=== PATIENT | male | born 1975 | race Caucasian/White ===

== ENCOUNTER 2019-01-24 23:49 | Emergency (ER) | payer OTHER ==
[2019-01-25] MEDS ORDERED: VANCOMYCIN IV PER PHARMACY 1 EACH MISC MISCELLANE PRN (00:24)
[2019-01-25] MEDS ORDERED: MORPHINE SULFATE 4 MG/ML SYRINGE IVP STA (00:27)
[2019-01-25] MEDS ORDERED: VANCOMYCIN 1,500 MG in SODIUM CHLORIDE 0.9% 250 ML IVPB ONE (01:00)
--- NOTE | 2019-01-25 01:02 | ED ---
Skin/Abscess/FB HPI - General Chief complaint: Skin/Abscess/Foreign Body Stated complaint: Groin Abscess Time Seen by Provider: 01/25/19 00:11 Source: patient Mode of arrival: ambulatory Limitations: no limitations - History of Present Illness Initial comments: Jeromy is a previously healthy non-diabetic 43 yo male who presents to the ER today for evaluation of right groin abscess. Patient reports that he has noticed an abscess in his right groin intermittently over the past couple years he describes it as a pimple usually erupts and he can drain it and it resolves. He reports that he noticed it yesterday however today he got very large and ally nful. Patient reports his tried to drain it but it was too painful and swollen and larger and it had ever been so they decided to come to the ER for evaluation. She reports the pain radiates from his right groin and he was pubic area but not down into his testicles her perineal area. - Related Data Previous Rx's Medication Instructions Recorded Cephalexin [Keflex] 500 mg PO Q6HR 5 Days #20 cap 01/25/19 Sulfamethox-Tmp 800-160Mg [Bactrim 1 tab PO Q12HR 5 Days #10 tab 01/25/19 DS 800-160 mg] Allergies Allergy/AdvReac Type Severity Reaction Status Date / Time No Known Allergies Allergy Verified 01/25/19 00:09 Review of Systems ROS Statement: Those systems with pertinent positive or pertinent negative responses have been documented in the HPI. ROS Other: All systems not noted in ROS Statement are negative. Past Medical History Past Medical History: No Reported History History of Any Multi-Drug Resistant Organisms: None Reported Past Surgical History: No Surgical Hx Reported Past Psychological History: No Psychological Hx Reported Smoking Status: Current every day smoker Past Alcohol Use History: Occasional Past Drug Use History: Marijuana General Exam - General Exam Comments Initial Comments: Physical Exam GENERAL: Appears uncomfortable HENT: Normocephalic, Atraumatic. EYES: PERRL, EOMI PULMONARY: Unlabored respirations. No audible rales rhonchi or wheezing was noted. CARDIOVASCULAR: Tachycardiac, regular ABDOMEN: Soft and nontender with normal bowel sounds. SKIN: Abscess in the right groin measuring approximately 1.5 cm in diameter with surrounding cellulitis. There is no crepitus No ecchymosis and the perineum No tenderness of the penis or scrotum : Normal external genitalia, circumcised NEUROLOGIC: Patient is alert and oriented x3. Moving all extremities spontaneously MUSCULOSKELETAL: Normal extremities with adequate strength and full range of motion. No lower extremity swelling or edema. No calf tenderness. PSYCHIATRIC: Normal psychiatric evaluation. Limitations: no limitations Course Vital Signs 01/25/19 01/25/19 00:04 04:18 Temperature 98.4 F 98.3 F Pulse Rate 113 H 85 Respiratory 20 18 Rate Blood Pressure 134/85 121/80 O2 Sat by Pulse 96 91 L Oximetry Procedures - Incision & Drainage Consent Obtained: verbal consent Site: upper extremity (right groin) Anesthetic Used: lidocaine 1% Amount (mLs): 3 I&D Cleaning Method: Chloroprep Scalpel Used: #11 Needle Aspiration Performed?: Yes I&D Drainage Obtained: Pus, Blood Packing: Plain Culture Obtained?: No Patient Tolerated Procedure: well Medical Decision Making - Medical Decision Making The patient was seen and evaluated, patient was noted to be tachycardic and very uncomfortable Physical exam does reveal a right groin abscess with surrounding cellulitis A sepsis workup was initiated, computed tomography scan was ordered to evaluate for any tracking of the abscess or signs of Levon's gangrene Broad-spectrum antibiotics were initiated CT with the small localized abscess with surrounding cellulitis no signs of Four nier's gangrene or necrotizing fasciitis Labs with mild leukocytosis otherwise unremarkable The abscess was I&D, purulent fluid was drained and I&D was packed with gauze. 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 Patient will be discharged home with Keflex and Bactrim for treatment of abscess. Closed return parameters were discussed all questions pertaining care were answered patient was discharged home in stable condition. - Lab Data Result diagrams: 01/25/19 00:55 01/25/19 00:55 Lab Results 01/25/19 01/25/19 01/25/19 Range/Units 00:55 00:55 00:55 WBC 9.8 (3.8-10.6) k/uL RBC 5.14 (4.30-5.90) m/uL Hgb 15.3 (13.0-17.5) gm/dL Hct 45.7 (39.0-53.0) % MCV 89.0 (80.0-100.0) fL MCH 29.8 (25.0-35.0) pg MCHC 33.5 (31.0-37.0) g/dL RDW 12.8 (11.5-15.5) % Plt Count 207 (150-450) k/uL Neutrophils % 57 % Lymphocytes % 35 % Monocytes % 5 % Eosinophils % 2 % Basophils % 0 % Neutrophils # 5.6 (1.3-7.7) k/uL Lymphocytes # 3.4 (1.0-4.8) k/uL Monocytes # 0.5 (0-1.0) k/uL Eosinophils # 0.2 (0-0.7) k/uL Basophils # 0.0 (0-0.2) k/uL PT (9.0-12.0) sec INR (<1.2) APTT (22.0-30.0) sec Sodium 142 (137-145) mmol/L Potassium 4.1 (3.5-5.1) mmol/L Chloride 105 (98-107) mmol/L Carbon Dioxide 22 (22-30) mmol/L Anion Gap 15 mmol/L BUN 8 L (9-20) mg/dL Creatinine 0.79 (0.66-1.25) mg/dL Est GFR (CKD-EPI)AfAm >90 (>60 ml/min/1.73 sqM) Est GFR (CKD-EPI)NonAf >90 (>60 ml/min/1.73 sqM) Glucose 126 H (74-99) mg/dL Lactic Ac Sepsis Rflx Plasma Lactic Acid Benito 2.2 H* (0.7-2.0) mmol/L Calcium 8.7 (8.4-10.2) mg/dL Total Bilirubin 0.4 (0.2-1.3) mg/dL AST 32 (17-59) U/L ALT 48 (21-72) U/L Alkaline Phosphatase 90 (38-126) U/L Total Protein 7.2 (6.3-8.2) g/dL Albumin 4.4 (3.5-5.0) g/dL Urine Color Urine Appearance (Clear) Urine pH (5.0-8.0) Ur Specific Mcgill (1.001-1.035) Urine Protein (Negative) Urine Glucose (UA) (Negative) Urine Ketones (Negative) Urine Blood (Negative) Urine Nitrite (Negative) Urine Bilirubin (Negative) Urine Urobilinogen (<2.0) mg/dL Ur Leukocyte Esterase (Negative) 01/25/19 01/25/19 01/25/19 Range/Units 00:55 01:00 01:52 WBC (3.8-10.6) k/uL RBC (4.30-5.90) m/uL Hgb (13.0-17.5) gm/dL Hct (39.0-53.0) % MCV (80.0-100.0) fL MCH (25.0-35.0) pg MCHC (31.0-37.0) g/dL RDW (11.5-15.5) % Plt Count (150-450) k/uL Neutrophils % % Lymphocytes % % Monocytes % % Eosinophils % % Basophils % % Neutrophils # (1.3-7.7) k/uL Lymphocytes # (1.0-4.8) k/uL Monocytes # (0-1.0) k/uL Eosinophils # (0-0.7) k/uL Basophils # (0-0.2) k/uL PT 9.4 (9.0-12.0) sec INR 0.9 (<1.2) APTT 23.6 (22.0-30.0) sec Sodium (137-145) mmol/L Potassium (3.5-5.1) mmol/L Chloride (98-107) mmol/L Carbon Dioxide (22-30) mmol/L Anion Gap mmol/L BUN (9-20) mg/dL Creatinine (0.66-1.25) mg/dL Est GFR (CKD-EPI)AfAm (>60 ml/min/1.73 sqM) Est GFR (CKD-EPI)NonAf (>60 ml/min/1.73 sqM) Glucose (74-99) mg/dL Lactic Ac Sepsis Rflx Y Plasma Lactic Acid Benito (0.7-2.0) mmol/L Calcium (8.4-10.2) mg/dL Total Bilirubin (0.2-1.3) mg/dL AST (17-59) U/L ALT (21-72) U/L Alkaline Phosphatase (38-126) U/L Total Protein (6.3-8.2) g/dL Albumin (3.5-5.0) g/dL Urine Color Yellow Urine Appearance Clear (Clear) Urine pH 6.0 (5.0-8.0) Ur Specific Mcgill 1.015 (1.001-1.035) Urine Protein Negative (Negative) Urine Glucose (UA) Negative (Negative) Urine Ketones Negative (Negative) Urine Blood Negative (Negative) Urine Nitrite Negative (Negative) Urine Bilirubin Negative (Negative) Urine Urobilinogen <2.0 (<2.0) mg/dL Ur Leukocyte Esterase Negative (Negative) - EKG Data -: EKG Interpreted by Me EKG Comments: EKG was ordered to evaluate for tachycardia, EKG obtained at 12:50 AM, rate is 102 rhythm is sinus there is normal axis there are normal intervals, AL 150, QRS 94, QTC is 463 there are no acute ST elevations or depressions there is no evidence of acute ischemia or infarction. Disposition Clinical Impression: Abscess, Cellulitis Disposition: HOME SELF-CARE Condition: Stable Instructions (If sedation given, give patient instructions): Abscess Incision and Drainage (ED) Prescriptions: Sulfamethox-Tmp 800-160Mg [Bactrim DS 800-160 mg] 1 tab PO Q12HR 5 Days #10 tab Cephalexin [Keflex] 500 mg PO Q6HR 5 Days #20 cap Is patient prescribed a controlled substance at d/c from ED?: No Referrals: None,Stated [Primary Care Provider] - 1-2 days
[2019-01-25 01:14] LABS: Basophils % (A) 0 %; Eosinophils # (A) 0.2 k/uL (0-0.7); Eosinophils % (A) 2 %; HCT 45.7 % (39.0-53.0); HGB 15.3 gm/dL (13.0-17.5); Lymphocytes # (A) 3.4 k/uL (1.0-4.8); Lymphocytes % (A) 35 %; MCH 29.8 pg (25.0-35.0); MCHC 33.5 g/dL (31.0-37.0); Mean Platelet Volume 5.8; Monocytes # (A) 0.5 k/uL (0-1.0); Monocytes % (A) 5 %; Neutrophils # (A) 5.6 k/uL (1.3-7.7); Neutrophils % (A) 57 %; Platelet Count 207 k/uL (150-450); RBC 5.14 m/uL (4.30-5.90); RDW 12.8 % (11.5-15.5); WBC 9.8 k/uL (3.8-10.6)
[2019-01-25 01:22] LABS: INR 0.9 (<1.2)
[2019-01-25 01:23] LABS: Partial Thromboplastin Time 23.6 sec (22.0-30.0); Prothrombin Time 9.4 sec (9.0-12.0)
[2019-01-25] MEDS: PIPERACILLIN-TAZOBACTAM 3.375 GM in SODIUM CHLORIDE 0.9% 100 ML IVPB STA ×2 (01:29→03:39)
[2019-01-25] MEDS: SODIUM CHLORIDE 0.9% 500 ML 500 ML IV SCH ×3 (01:30→02:21)
[2019-01-25 01:32] LABS: ALT 48 U/L (21-72); AST 32 U/L (17-59); African American GFR (CKD) >90 (>60 ml/min/1.73 sqM); Albumin 4.4 g/dL (3.5-5.0); Alkaline Phosphatase 90 U/L (38-126); Anion Gap 15 mmol/L; Blood Urea Nitrogen 8 mg/dL (9-20); Calcium 8.7 mg/dL (8.4-10.2); Carbon Dioxide 22 mmol/L (22-30); Chloride 105 mmol/L (98-107); Glucose 126 mg/dL (74-99); Potassium 4.1 mmol/L (3.5-5.1); Sodium 142 mmol/L (137-145); Total Bilirubin 0.4 mg/dL (0.2-1.3); Total Protein 7.2 g/dL (6.3-8.2)
[2019-01-25 01:33] LABS: Appearance,Urine Clear (Clear); Bilirubin,Urine Negative (Negative); Blood,Urine Negative (Negative); Color,Urine Yellow; Glucose,Urine (UA) Negative (Negative); Ketones,Urine Negative (Negative); Leukocyte Esterase,Urine Negative (Negative); Nitrite,Urine Negative (Negative); Protein,Urine Negative (Negative); Specific Gravity,Urine 1.015 (1.001-1.035); Urobilinogen,Urine <2.0 mg/dL (<2.0)
--- NOTE | 2019-01-25 02:02 | CT ---
EXAM: CT Pelvis With Intravenous Contrast CLINICAL HISTORY: ITS.REASON CT Reason: Abscess right groin TECHNIQUE: Axial computed tomography images of the pelvis with intravenous contrast. CTDI is 20 mGy and DLP is 1063 mGy-cm. This CT exam was performed using one or more of the following dose reduction techniques: automated exposure control, adjustment of the mA and/or kV according to patient size, and/or use of iterative reconstruction technique. COMPARISON: No relevant prior studies available. FINDINGS: Bowel: Unremarkable. No obstruction. No mucosal thickening. Appendix: No findings to suggest acute appendicitis. Intraperitoneal space: Unremarkable. No free air. No significant fluid collection. Bladder: Unremarkable. No mass. Reproductive: Unremarkable. Bones/joints: No acute fracture. No dislocation. Soft tissues: There is soft tissue stranding and skin thickening along the right groin/crease with 1.5 cm superficial fluid collection.. Vasculature: Unremarkable. No lower abdominal aortic aneurysm. Lymph nodes: Unremarkable. No enlarged lymph nodes. IMPRESSION: 1.5 cm superficial likely abscess with surrounding cellulitis in the right groin along the crease.
[2019-01-25] MEDS ORDERED: LIDOCAINE 1% INJ 10MG/ML (20 ML MDV) SQ ONE (02:10)
[2019-01-25] MEDS ORDERED: HYDROmorphone 1 MG/ML 1 ML SYRINGE IVP STA (02:16)
[2019-01-25 04:19] VITALS: BP 121/80; PULSE 85; RESP 18; TEMP 98.3
== END 2019-01-25 04:20 | disposition home or self-care (01) ==
LOC: EC 23:49
DX: L02.214 Cutaneous abscess of groin (principal); L03.314 Cellulitis of groin; R00.0 Tachycardia, unspecified; D72.829 Elevated white blood cell count, unspecified; F17.200 Nicotine dependence, unspecified, uncomplicated
CPT/HCPCS: 36415; 93005; 80053; 83605; 85025; 85610; 85730; 81003; 87040; 87086; 72193; 99284; 10060; 96365; 96366; 96367; 96375 ×2; J2543; J3370; J2270; J2001; J1170; Q9967

== ENCOUNTER 2020-05-08 11:14 | Emergency (ER) | payer OTHER ==
[2020-05-08 11:36] VITALS: TEMP 98.9
[2020-05-08] MEDS ORDERED: ASPIRIN 81 MG PO STA (11:44)
[2020-05-08] MEDS ORDERED: LORazepam 2 MG/ML INJ IV STA (12:03)
--- NOTE | 2020-05-08 12:36 | XR ---
EXAMINATION TYPE: XR chest 2V DATE OF EXAM: 05/08/2020 COMPARISON: None INDICATION: Chest pain short of breath TECHNIQUE: Frontal and lateral views of the chest are obtained. FINDINGS: The heart size is normal. The pulmonary vasculature is normal. The lungs are clear. IMPRESSION: 1. No acute pulmonary process.
--- NOTE | 2020-05-08 13:00 | ED ---
Chest Pain HPI - General Chief Complaint: Chest Pain Stated Complaint: chest pain, lt sided numbness Time Seen by Provider: 05/08/20 11:44 Source: patient, RN notes reviewed Mode of arrival: wheelchair Limitations: no limitations - History of Present Illness Initial Comments: This a 45-year-old male presents emergency Department chief complaint of left- sided chest discomfort. Patient states been having some on-and-off symptoms states that it seemed to worsen. He is unsure if this related to his anxiety. Patient has been going to counseling. Patient states he has left arm numbness and sometimes numbness towards his left side of his neck or face region. Patient states he symptoms are intermittent. Patient denies any history of hypertension hyperlipidemia diabetes though he states it does not go primary care physician. Patient states he is on no current medications. Patient does admit that he is a smoker. - Related Data Previous Rx's Medication Instructions Recorded Cephalexin [Keflex] 500 mg PO Q6HR 5 Days #20 cap 01/25/19 Sulfamethox-Tmp 800-160Mg [Bactrim 1 tab PO Q12HR 5 Days #10 tab 01/25/19 DS 800-160 mg] LORazepam [Ativan] 0.5 mg PO BID 3 Days #6 tab 05/08/20 Allergies Allergy/AdvReac Type Severity Reaction Status Date / Time No Known Allergies Allergy Verified 01/25/19 00:09 Review of Systems ROS Statement: Those systems with pertinent positive or pertinent negative responses have been documented in the HPI. ROS Other: All systems not noted in ROS Statement are negative. EKG Findings - EKG Comments: EKG Findings:: EKG performed at 11:27 normal sinus rhythm rate of 92 LA 148 QRS 92 QT/QTC 382/472 Past Medical History Past Medical History: No Reported History History of Any Multi-Drug Resistant Organisms: None Reported Past Surgical History: No Surgical Hx Reported Additional Past Surgical History / Comment(s): cyst removal Past Psychological History: Anxiety Smoking Status: Current every day smoker Past Alcohol Use History: Occasional Past Drug Use History: Marijuana General Exam General appearance: alert, in no apparent distress Head exam: Present: atraumatic, normocephalic, normal inspection Neck exam: Present: normal inspection. Absent: tenderness, meningismus, lymphad enopathy Respiratory exam: Present: normal lung sounds bilaterally. Absent: respiratory distress, wheezes, rales, rhonchi, stridor Cardiovascular Exam: Present: regular rate, normal rhythm, normal heart sounds. Absent: systolic murmur, diastolic murmur, rubs, gallop, clicks GI/Abdominal exam: Present: soft, normal bowel sounds. Absent: distended, tenderness, guarding, rebound, rigid Extremities exam: Present: other (Upper and lower extremity strength equal bilaterally) Neurological exam: Present: alert, oriented X3 Skin exam: Present: warm, dry, intact, normal color. Absent: rash Course Vital Signs 05/08/20 05/08/20 05/08/20 11:30 11:31 12:00 Temperature 98.9 F Pulse Rate 93 91 90 Respiratory 17 18 22 Rate Blood Pressure 155/94 155/94 O2 Sat by Pulse 97 96 95 Oximetry 05/08/20 13:00 Temperature Pulse Rate 93 Respiratory 20 Rate Blood Pressure 128/96 O2 Sat by Pulse Oximetry Chest Pain MDM - MDM 45-year-old male presents emergency department for intermittent chest discomfort and numbness. Patient workup is negative this time patient does not have a primary care physician and unsure about underlying producing hypertension. I did recommend patient be admitted for cardiology evaluation repeat troponins patient declines states that he said better after Ativan and she's anxiety. Patient again recommended to stay in the hospital. Patient declines. Disposition Clinical Impression: Chest pain, Anxiety Disposition: HOME SELF-CARE Condition: Stable Instructions (If sedation given, give patient instructions): Chest Pain (ED) Additional Instructions: Please return to the Emergency Department if symptoms worsen or any other concerns. Prescriptions: LORazepam [Ativan] 0.5 mg PO BID 3 Days #6 tab Is patient prescribed a controlled substance at d/c from ED?: Yes When asked, does pt state using other controlled substances?: No If prescribed controlled substance>3 days was MAPS reviewed?: Prescribed <3 Days Referrals: None,Stated [Primary Care Provider] - 1-2 days Elieser Case MD [STAFF PHYSICIAN] - 1-2 days Hayden Hyatt MD [REFERRING] - 1-2 days Time of Disposition: 14:02
[2020-05-08 13:02] LABS: Basophils % (A) 0 %; Eosinophils # (A) 0.1 k/uL (0-0.7); Eosinophils % (A) 1 %; HCT 50.4 % (39.0-53.0); HGB 17.1 gm/dL (13.0-17.5); Lymphocytes # (A) 1.5 k/uL (1.0-4.8); Lymphocytes % (A) 15 %; MCHC 33.8 g/dL (31.0-37.0); MCV 91.6 fL (80.0-100.0); Mean Platelet Volume 6.5; Monocytes # (A) 0.4 k/uL (0-1.0); Monocytes % (A) 4 %; Neutrophils # (A) 7.9 k/uL (1.3-7.7); Neutrophils % (A) 79 %; Platelet Count 171 k/uL (150-450); RDW 12.3 % (11.5-15.5)
[2020-05-08 13:11] LABS: ALT 37 U/L (4-49); AST 32 U/L (17-59); African American GFR (CKD) >90 (>60 ml/min/1.73 sqM); Albumin 4.1 g/dL (3.5-5.0); Alkaline Phosphatase 73 U/L (38-126); Anion Gap 8 mmol/L; Blood Urea Nitrogen 14 mg/dL (9-20); Calcium 9.2 mg/dL (8.4-10.2); Carbon Dioxide 24 mmol/L (22-30); Chloride 108 mmol/L (98-107); Glucose 127 mg/dL (74-99); Lipase 73 U/L (23-300); Non-African American GFR(CKD) >90 (>60 ml/min/1.73 sqM); Potassium 3.6 mmol/L (3.5-5.1); Sodium 140 mmol/L (137-145); Total Bilirubin 0.7 mg/dL (0.2-1.3); Total Protein 6.6 g/dL (6.3-8.2)
[2020-05-08 13:25] LABS: D-Dimer <0.17 mg/L FEU (<0.60); INR 0.9 (<1.2); Partial Thromboplastin Time 22.1 sec (22.0-30.0); Prothrombin Time 9.7 sec (9.0-12.0)
[2020-05-08 13:45] VITALS: RESP 20
[2020-05-08 14:16] VITALS: BP 167/87; PULSE 98
== END 2020-05-08 14:16 | disposition home or self-care (01) ==
LOC: EC 11:14
DX: R07.89 Other chest pain (principal); F41.9 Anxiety disorder, unspecified; R20.0 Anesthesia of skin; F17.200 Nicotine dependence, unspecified, uncomplicated
CPT/HCPCS: 36415; 93005; 85379; 83880; 80053; 83690; 83735; 84484; 85025; 85610; 85730; 71046; 99285; 96374; J2060

== ENCOUNTER 2021-02-15 19:57 | Emergency (ER) | payer OTHER ==
[2021-02-15 20:17] VITALS: BP 166/88; PULSE 114; RESP 16; TEMP 98.5
[2021-02-15] MEDS ORDERED: HYDROmorphone 1 MG/ML 1 ML SYRINGE IM STA (20:40)
--- NOTE | 2021-02-15 21:09 | XR ---
EXAMINATION TYPE: XR shoulder complete RT DATE OF EXAM: 02/15/2021 CLINICAL HISTORY: Pain. TECHNIQUE: Three views of the right shoulder are obtained. COMPARISON: None. FINDINGS: There is no acute fracture/dislocation evident in the right shoulder. Moderate narrowing a t acromioclavicular joint without spurring. Distal acromion morphology unremarkable. Glenohumeral shreyas int preserved. The visualized ribs are intact and unremarkable. IMPRESSION: As above.
--- NOTE | 2021-02-15 21:12 | XR ---
EXAMINATION TYPE: XR cervical spine comp DATE OF EXAM: 02/15/2021 TECHNIQUE: Frontal, lateral, oblique, swimmers, and open mouth view of the cervical spine are obtaine d. HISTORY: neck pain COMPARISON: None FINDINGS: The cervical spine is visualized in its entirety from C1 thru the top of C7 level, reversa l of normal cervical curvature is present. The pre-vertebral soft tissue appears within normal limit s. The C1-C2 articulation shows intact top of the dens, suboptimal evaluation of the lateral articul ating facets despite several attempts due to osseous overlap. Vertebral body heights are maintained. [id number] disc space narrowing and mild anterior spurring C4-C5 level. Mild disc space narrow ing and anterior spurring C5-C6 level. Suboptimal evaluation of C7 vertebra and C7-T1 disc space desp ite attempted swimmer's view . The oblique images are within normal limits. Overlying soft tissue is unremarkable. IMPRESSION: As above.
--- NOTE | 2021-02-15 21:41 | ED ---
Upper Extremity HPI - General Chief Complaint: Extremity Injury, Upper Stated Complaint: R shoulder pain Time Seen by Provider: 02/15/21 20:27 Source: patient, RN notes reviewed Mode of arrival: ambulatory Limitations: no limitations - History of Present Illness Initial Comments: Patient is a 45-year-old male that presents to emergency department complaining of right-sided neck upper back and right shoulder arm pain. 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 Patient notes that his primary care in several other emergency rooms would give him muscle relaxers and pain medication. Patient notes that he is recently started to lose some muscle masses right upper extremity secondary to the pain. Him and his both think some type of nerve damage is going on due to the decreased muscle mass and the continuing numbness tingling and shooting pain down the right arm. Patient states that he takes Motrin with no relief. He also states that muscle relaxers only work for about the first day. He denied any recent injury or trauma. He noted that he can still rates his right arm but it is difficult to move through the entire range of motion. He denied any injury trauma chest pain shortness of breath headache nausea vomiting diarrhea constipation fever fatigue chills. - Related Data Previous Rx's Medication Instructions Recorded Cephalexin [Keflex] 500 mg PO Q6HR 5 Days #20 cap 01/25/19 Sulfamethox-Tmp 800-160Mg [Bactrim 1 tab PO Q12HR 5 Days #10 tab 01/25/19 DS 800-160 mg] LORazepam [Ativan] 0.5 mg PO BID 3 Days #6 tab 05/08/20 HYDROcodone/APAP 7.5-325MG [[place] 1 tab PO Q6HR PRN 3 Days #12 tab 02/15/21 7.5-325] Allergies Allergy/AdvReac Type Severity Reaction Status Date / Time No Known Allergies Allergy Verified 02/15/21 20:15 Review of Systems ROS Statement: Those systems with pertinent positive or pertinent negative responses have been documented in the HPI. ROS Other: All systems not noted in ROS Statement are negative. Past Medical History Past Medical History: No Reported History History of Any Multi-Drug Resistant Organisms: None Reported Past Surgical History: No Surgical Hx Reported Additional Past Surgical History / Comment(s): cyst removal Past Psychological History: Anxiety Smoking Status: Current every day smoker Past Alcohol Use History: Occasional Past Drug Use History: Marijuana General Exam Limitations: no limitations General appearance: alert, in no apparent distress Head exam: Present: atraumatic, normocephalic, normal inspection Eye exam: Present: normal appearance, PERRL, EOMI. Absent: scleral icterus, conjunctival injection, periorbital swelling Neck exam: Present: normal inspection, tenderness (Right muscle tenderness throughout the upper trapezius.) Respiratory exam: Present: normal lung sounds bilaterally. Absent: respiratory distress, wheezes, rales, rhonchi, stridor Cardiovascular Exam: Present: regular rate, normal rhythm, normal heart sounds. Absent: systolic murmur, diastolic murmur, rubs, gallop, clicks Right Shoulder Exam: Present: normal inspection, tenderness (Posterior aspect throughout the rhomboids and trapezius regions.). Absent: full ROM (Secondary to pain), swelling, abrasion, laceration, ecchymosis, deformity Upper Arm exam: Present: normal inspection. Absent: tenderness, swelling Elbow exam: Present: normal inspection, full ROM. Absent: tenderness, swelling Neurological exam: Present: alert, oriented X3, other Expanded Neurological exam: Present: other (Medial ulnar and radial nerve intact, finger abduction strength 5 out of 5, wrist extension strength 5 out of 5, thumb index finger pinched strength 5 out of 5) Psychiatric exam: Present: normal affect, normal mood Skin exam: Present: warm, dry, intact, normal color. Absent: rash Course Vital Signs 02/15/21 20:15 Temperature 98.5 F Pulse Rate 114 H Respiratory 16 Rate Blood Pressure 166/88 O2 Sat by Pulse 97 Oximetry Medical Decision Making - Medical Decision Making 45-year-old male complaining of right-sided neck upper back and right arm pain with some decreased muscle mass in the right upper extremity. Extremities cervical spine, x-ray of the right shoulder, 1 mg of Dilaudid ordered. X-rays negative for any acute fractures or dislocations. Case discussed with Dr. Dumont, patient discharge home with follow-up to neurology and orthopedics. - Radiology Data Radiology results: report reviewed, image reviewed Cervical spine x-ray: The cervical spine is visualized in its entirety from C1 through the top C7 level, reversal of normal cervical curvature is present. The prevertebral soft tissue appears within normal limits. The C1-C2 articulation shows intact top of the dens. Suboptimal evaluation of the lateral articular facets despite several attempts due to osseous overlap. Vertebral body heights are maintained mild to moderate disc space narrowing and mild anterior spurring C4-C5 level. Mild disc space narrowing and anterior spurring C5-C6 level suboptimal evaluation of C7 vertebra and C7-T1 disc space despite attempted swimmers view. The oblique images are within normal limits. Overlying soft tissue is unremarkable. Right shoulder x-ray: There is no acute fracture dislocation evident in the right shoulder. Moderate narrowing at acromioclavicular joint without spurring. Distal acromion morphology unremarkable. glenohumeral joint preserved to visualize ribs are intact unremarkable. Disposition Clinical Impression: Cervical radiculopathy, Upper back pain, Right shoulder pain Disposition: HOME SELF-CARE Condition: Stable Instructions (If sedation given, give patient instructions): Cervical Radiculopathy (ED), Neck Pain (ED) Additional Instructions: Please return to the Emergency Department if symptoms worsen or any other concerns. Follow-up with neurology and orthopedics as soon as possible. Follow-up with primary care soon as possible. Take pain medication as prescribed. Is patient prescribed a controlled substance at d/c from ED?: Yes When asked, does pt state using other controlled substances?: No If prescribed controlled substance>3 days was MAPS reviewed?: No If opioid is for acute pain is fill amount 7 days or less?: Yes If Rx opioid, was Start Talking consent form obtained?: Yes Referrals: None,Stated [Primary Care Provider] - 1-2 days Kirill Jacques MD [STAFF PHYSICIAN] - 1-2 days Vic Arias DO [Doctor of Osteopathic Medicine] - 1-2 days Time of Disposition: 21:45
== END 2021-02-15 21:59 | disposition home or self-care (01) ==
LOC: EC 19:57
DX: M54.12 Radiculopathy, cervical region (principal); F17.200 Nicotine dependence, unspecified, uncomplicated
CPT/HCPCS: 72050; 73030; 99283; 96372; J1170

== ENCOUNTER 2022-01-31 18:50 | Observation (INO) | payer OTHER ==
[2022-01-31 19:27] VITALS: TEMP 97.9
[2022-01-31] MEDS ORDERED: ASPIRIN 81 MG PO STA (19:46)
[2022-01-31] MEDS ORDERED: NITROGLYCERIN SL TABS 0.4 MG TAB SUBLINGUAL STA (19:46)
[2022-01-31] MEDS ORDERED: SODIUM CHLORIDE 0.9% 1,000 ML IV STA (19:46)
[2022-01-31 20:04] LABS: Basophils # (A) 0.1 k/uL (0-0.2); Basophils % (A) 1 %; Eosinophils # (A) 0.1 k/uL (0-0.7); Eosinophils % (A) 1 %; HCT 43.5 % (39.0-53.0); HGB 15.3 gm/dL (13.0-17.5); Lymphocytes # (A) 2.1 k/uL (1.0-4.8); Lymphocytes % (A) 20 %; MCHC 35.3 g/dL (31.0-37.0); MCV 90.8 fL (80.0-100.0); Mean Platelet Volume 6.4; Monocytes # (A) 0.5 k/uL (0-1.0); Monocytes % (A) 4 %; Neutrophils # (A) 7.8 k/uL (1.3-7.7); Neutrophils % (A) 73 %; Platelet Count 197 k/uL (150-450); RBC 4.79 m/uL (4.30-5.90); RDW 12.1 % (11.5-15.5); WBC 10.7 k/uL (3.8-10.6)
[2022-01-31 20:13] LABS: INR 0.9 (<1.2); Partial Thromboplastin Time 22.8 sec (22.0-30.0); Prothrombin Time 9.8 sec (9.0-12.0)
[2022-01-31 20:19] LABS: ALT 24 U/L (4-49); AST 24 U/L (17-59); African American GFR (CKD) >90 (>60 ml/min/1.73 sqM); Albumin 4.2 g/dL (3.5-5.0); Alkaline Phosphatase 83 U/L (38-126); Anion Gap 8 mmol/L; Blood Urea Nitrogen 10 mg/dL (9-20); Calcium 8.9 mg/dL (8.4-10.2); Carbon Dioxide 27 mmol/L (22-30); Chloride 101 mmol/L (98-107); Glucose 108 mg/dL (74-99); Non-African American GFR(CKD) >90 (>60 ml/min/1.73 sqM); Potassium 3.5 mmol/L (3.5-5.1); Sodium 136 mmol/L (137-145); Total Bilirubin 0.5 mg/dL (0.2-1.3); Total Protein 6.7 g/dL (6.3-8.2)
[2022-01-31 20:51] VITALS: RESP 18
[2022-01-31] MEDS ORDERED: HEPARIN SODIUM 1,000 UN/ML (10ML VL) IV ONE (21:24)
[2022-01-31] MEDS ORDERED: HEPARIN SODIUM 1,000 UN/ML (10ML VL) IV PRN (21:24)
[2022-01-31] MEDS ORDERED: NITROGLYCERIN SL TABS 0.4 MG TAB SUBLINGUAL PRN (21:25)
[2022-01-31] MEDS ORDERED: NALOXONE 0.4 MG/ML 1 ML VIAL IV PRN (21:25)
[2022-01-31] MEDS ORDERED: HEPARIN SOD,PORK IN 0.45% NACL 25,000 UNIT in 0.45% NACL 1 250ML.BAG IV SCH (21:30)
--- NOTE | 2022-01-31 21:31 | ED ---
General Adult HPI - General Chief complaint: Chest Pain Stated complaint: Chest Pain, KENDALL Time Seen by Provider: 01/31/22 19:39 Source: patient, RN notes reviewed, old records reviewed Mode of arrival: ambulatory Limitations: no limitations - History of Present Illness Initial comments: She is a 46-year-old male who presents emergency Department complaining of feeling weak since this morning. There is been worse throughout the day today. He began having chest pain approximately 3 or 4 PM this afternoon. Has felt weak still. Presents humerus department for further evaluation. Describes the pain as left-sided with some mild radiation to his left back. States he feels tired. Denies any nausea, vomiting, abdominal pain. Describes it as sharp, achy. He has no significant past medical history. Presents for further evaluation at this time. No cardiac history.Patient denies johnathan shortness of breath, but describes it more of a weakness sensation. - Related Data Home Medications Medication Instructions Recorded Confirmed Ibuprofen [Motrin] 800 mg PO TID PRN 01/31/22 01/31/22 Multivitamins, Thera [Multivitamin 1 tab PO DAILY 01/31/22 01/31/22 (formulary)] Sertraline [Zoloft] 100 mg PO DAILY 01/31/22 01/31/22 Allergies Allergy/AdvReac Type Severity Reaction Status Date / Time No Known Allergies Allergy Verified 01/31/22 21:45 Review of Systems ROS Statement: Those systems with pertinent positive or pertinent negative responses have been documented in the HPI. Review of Systems: CONST: Denies fever EYES: Denies blurry vision ENT: Denies nasal congestion C/V: Endorses chest pain RESP: Denies shortness of breath GI: Denies abdominal pain : Denies dysuria SKIN: Denies rash. MSK: Denies joint pain. NEURO: Denies headache ROS Other: All systems not noted in ROS Statement are negative. Past Medical History Past Medical History: No Reported History History of Any Multi-Drug Resistant Organisms: None Reported Past Surgical History: No Surgical Hx Reported Additional Past Surgical History / Comment(s): cyst removal Past Psychological History: Anxiety Smoking Status: Current every day smoker Past Alcohol Use History: Occasional Past Drug Use History: Marijuana General Exam - General Exam Comments Initial Comments: General: Appears in no acute distress. HEAD: Normal with no signs of head trauma. EYES: PERRLA, EOMI, conjunctiva normal, no discharge. ENT: Hearing grossly intact, normal oropharynx. RESPIRATORY: Clear breath sounds bilaterally. No wheezes, rales, or rhonchi. C/V: Regular rate and rhythm. S1 and S2 auscultated, no edema, peripheral pu lses 2+ and intact throughout ABD: Abd is soft, nontender, nondistended EXT: Normal range of motion, no obvious deformity SKIN: No rashes or lesions observed on exposed skin. NEURO: Alert and oriented x 4. Cranial nerves II-XII intact. No focal sensory or strength deficits. Limitations: no limitations Course Vital Signs 01/31/22 01/31/22 19:25 20:50 Temperature 97.9 F Pulse Rate 102 H 88 Respiratory 22 18 Rate Blood Pressure 149/87 126/79 O2 Sat by Pulse 98 96 Oximetry Medical Decision Making - Medical Decision Making Based on the patient's presentation and physical exam, I'm concerned for acute cardio pulmonary etiology for his current symptoms. We will obtain cardiac workup including EKG, troponin, x-ray, as well as basic labs. He will be given aspirin 324 mg as well as a nitro. He was in agreement this plan. He will be given a 1 L fluid bolus. Vital signs within normal limits and stable. EKG showed no signs of acute ischemia. Laboratory studies are remarkable for a undetectable troponin. Remainder of the labs are unremarkable. On reevaluation, following the nitro tablet patient's pain is resolved and very manageable at this time. He states he feels much better. I discussed with him the results of his labs. I conveyed my concern for possible unstable angina. Like to admit him to the hospital on heparin for further troponin monitoring as well as cardiology consultation tomorrow. He was in agreement this plan. I spoke with the admitting physician, Dr. Thacker who accepted the patient. He was admitted in stable condition to a telemetry bed. Echo was ordered. - Lab Data Result diagrams: 01/31/22 19:55 01/31/22 19:55 Lab Results 01/31/22 01/31/22 01/31/22 Range/Units 19:55 19:55 19:55 WBC 10.7 H (3.8-10.6) k/uL RBC 4.79 (4.30-5.90) m/uL Hgb 15.3 (13.0-17.5) gm/dL Hct 43.5 (39.0-53.0) % MCV 90.8 (80.0-100.0) fL MCH 32.0 (25.0-35.0) pg MCHC 35.3 (31.0-37.0) g/dL RDW 12.1 (11.5-15.5) % Plt Count 197 (150-450) k/uL MPV 6.4 Neutrophils % 73 % Lymphocytes % 20 % Monocytes % 4 % Eosinophils % 1 % Basophils % 1 % Neutrophils # 7.8 H (1.3-7.7) k/uL Lymphocytes # 2.1 (1.0-4.8) k/uL Monocytes # 0.5 (0-1.0) k/uL Eosinophils # 0.1 (0-0.7) k/uL Basophils # 0.1 (0-0.2) k/uL PT 9.8 (9.0-12.0) sec INR 0.9 (<1.2) APTT 22.8 (22.0-30.0) sec Sodium 136 L (137-145) mmol/L Potassium 3.5 (3.5-5.1) mmol/L Chloride 101 (98-107) mmol/L Carbon Dioxide 27 (22-30) mmol/L Anion Gap 8 mmol/L BUN 10 (9-20) mg/dL Creatinine 0.81 (0.66-1.25) mg/dL Est GFR (CKD-EPI)AfAm >90 (>60 ml/min/1.73 sqM) Est GFR (CKD-EPI)NonAf >90 (>60 ml/min/1.73 sqM) Glucose 108 H (74-99) mg/dL Calcium 8.9 (8.4-10.2) mg/dL Magnesium 2.0 (1.6-2.3) mg/dL Total Bilirubin 0.5 (0.2-1.3) mg/dL AST 24 (17-59) U/L ALT 24 (4-49) U/L Alkaline Phosphatase 83 (38-126) U/L Troponin I (0.000-0.034) ng/mL Total Protein 6.7 (6.3-8.2) g/dL Albumin 4.2 (3.5-5.0) g/dL 01/31/22 Range/Units 19:55 WBC (3.8-10.6) k/uL RBC (4.30-5.90) m/uL Hgb (13.0-17.5) gm/dL Hct (39.0-53.0) % MCV (80.0-100.0) fL MCH (25.0-35.0) pg MCHC (31.0-37.0) g/dL RDW (11.5-15.5) % Plt Count (150-450) k/uL MPV Neutrophils % % Lymphocytes % % Monocytes % % Eosinophils % % Basophils % % Neutrophils # (1.3-7.7) k/uL Lymphocytes # (1.0-4.8) k/uL Monocytes # (0-1.0) k/uL Eosinophils # (0-0.7) k/uL Basophils # (0-0.2) k/uL PT (9.0-12.0) sec INR (<1.2) APTT (22.0-30.0) sec Sodium (137-145) mmol/L Potassium (3.5-5.1) mmol/L Chloride (98-107) mmol/L Carbon Dioxide (22-30) mmol/L Anion Gap mmol/L BUN (9-20) mg/dL Creatinine (0.66-1.25) mg/dL Est GFR (CKD-EPI)AfAm (>60 ml/min/1.73 sqM) Est GFR (CKD-EPI)NonAf (>60 ml/min/1.73 sqM) Glucose (74-99) mg/dL Calcium (8.4-10.2) mg/dL Magnesium (1.6-2.3) mg/dL Total Bilirubin (0.2-1.3) mg/dL AST (17-59) U/L ALT (4-49) U/L Alkaline Phosphatase (38-126) U/L Troponin I <0.012 (0.000-0.034) ng/mL Total Protein (6.3-8.2) g/dL Albumin (3.5-5.0) g/dL - EKG Data -: EKG Interpreted by Me EKG Comments: 12-lead Electrocardiogram Interpretation Note EKG was reviewed and interpreted by myself. 12-lead ECG performed at 1913 is interpreted by me as revealing normal sinus rhythm at a rate of 98 beats per minute. [place] is normal. UT interval is 154 ms, QRS duration is 102 ms, QTc is 416 ms. There are frequent PVCs seen on this EKG.. There were no ST or T wave abnormalities to suggest myocardial ischemia or injury. R wave progression across the precordium was satisfactory. By my interpretation this EKG is non- diagnostic for acute ischemia. 12-lead Electrocardiogram Interpretation Note EKG was reviewed and interpreted by myself. 12-lead ECG performed at 1913 is interpreted by me as revealing normal sinus rhythm at a rate of 96 beats per minute. [place] is normal. UT interval is 162 ms, QRS duration is 86 ms, QTc is 402 ms.. There were no ST or T wave abnormalities to suggest myocardial ischemia or injury. R wave progression across the precordium was satisfactory. By my interpretation this EKG is non-diagnostic for acute ischemia. Disposition Clinical Impression: Chest pain, Unstable angina Disposition: ADMITTED IP TO THIS HOSP Condition: Stable Is patient prescribed a controlled substance at d/c from ED?: No Time of Disposition: 21:25
--- NOTE | 2022-01-31 21:47 | XR ---
EXAMINATION TYPE: XR chest 2V DATE OF EXAM: 01/31/2022 9:19 PM COMPARISON: Chest radiographs from 05/08/2020 TECHNIQUE: XR chest 2V Frontal and lateral views of the chest. CLINICAL INDICATION:Male, 46 years old with history of Chest Pain; FINDINGS: Lungs/Pleura: Low lung volumes are present. There is no evidence of pleural effusion, focal consolida tion, or pneumothorax. Pulmonary vascularity: Unremarkable. Heart/mediastinum: Cardiomediastinal silhouette is unremarkable. Musculoskeletal: No acute osseous pathology. IMPRESSION: No significant change from prior. Diffuse haziness likely on the basis of low lung volume s/atelectasis.
[2022-02-01] MEDS ORDERED: ATORVASTATIN 80 MG TAB PO SCH (01:05)
--- NOTE | 2022-02-01 01:07 | P.HPIM ---
History of Present Illness H&P Date: 01/31/22 Patient is a 46-year-old male with no known PMH who presents to the emergency room with complaints of chest pain. Patient reports that he initially began feeling somewhat weak this morning, not his usual self. He then reports that he was at work working on a lawn when he suddenly developed chest discomfort, at around 4 PM this evening. He then proceeded to sit down in his car where he feels he may have lost consciousness for an unknown amount of time. He woke up to persistent chest discomfort, left-sided, 8 out of 10 at maximum intensity, radiating into the left arm and shoulder, with associated shortness of breath and diaphoresis. He denies any prior history of such symptoms. Denies e xperiencing fever, chills, cough, abdominal pain, diarrhea. EKG in the emergency room revealed sinus rhythm with frequent PVCs. Chest x-ray was unremarkable. Laboratory evaluation was remarkable for troponin less than 0.012. Patient reports smoking 5-6 cigarettes daily but denied illicit substan ce or alcohol use. Review of systems: Pertinent positives and negatives as discussed in HPI, a complete review of systems was performed and all other systems are negative. Physical examination: General: non toxic, no distress, appears at stated age, overweight Derm: no unusual rashes/lesions, warm Head: atraumatic, normocephalic, symmetric Eyes: EOMI, no lid lag, anicteric sclera, pupils equal round reactive to light ENT: Nose and ears atraumatic Neck: No cervical lymphadenopathy, trachea midline, supple Mouth: no lip lesion, mucus membranes moist Cardiovascular: S1S2 reg, no murmur, positive dorsalis pedis pulse bilateral, no edema Lungs: CTA bilateral, no rhonchi, no rales, no accessory muscle use Abdominal: soft, nontender to palpation, no guarding Ext: muscle strength 5 out of 5 in all 4 extremities grossly, no gross muscle atrophy, no contractures, Neuro: CN II-XI grossly intact, no gross focal neuro deficits Psych: Alert, oriented, appropriate affect Assessment/plan Unstable angina -Continue with heparin infusion, aspirin, statin -Cardiac monitoring -Cardiology consult -Trend troponin -Echocardiogram DVT prophylaxis -Heparin infusion The patient is admitted with an anticipated les than 2 midnight stay for evaluation of unstable angina. CODE STATUS: Full Code Discussed with: Patient Anticipated discharge date: in am Anticipated discharge place: Home Past Medical History Past Medical History: No Reported History History of Any Multi-Drug Resistant Organisms: None Reported Past Surgical History: No Surgical Hx Reported Additional Past Surgical History / Comment(s): cyst removal Past Psychological History: Anxiety Smoking Status: Current every day smoker Past Alcohol Use History: Occasional Past Drug Use History: Marijuana - Past Family History Father Family Medical History: Hypertension Medications and Allergies Home Medications Medication Instructions Recorded Confirmed Type Ibuprofen [Motrin] 800 mg PO TID PRN 01/31/22 01/31/22 History Multivitamins, Thera [Multivitamin 1 tab PO DAILY 01/31/22 01/31/22 History (formulary)] Sertraline [Zoloft] 100 mg PO DAILY 01/31/22 01/31/22 History Allergies Allergy/AdvReac Type Severity Reaction Status Date / Time No Known Allergies Allergy Verified 01/31/22 21:45 Physical Exam Vitals: Vital Signs Temp Pulse Resp BP Pulse Ox 01/31/22 20:50 88 18 126/79 96 01/31/22 19:25 97.9 F 102 H 22 149/87 98 Intake and Output 01/31/22 01/31/22 02/01/22 14:59 22:59 06:59 Other: Weight 102.058 kg Results CBC & Chem 7: 01/31/22 19:55 01/31/22 19:55 Labs: Abnormal Lab Results - Last 24 Hours (Table) 01/31/22 01/31/22 Range/Units 19:55 19:55 WBC 10.7 H (3.8-10.6) k/uL Neutrophils # 7.8 H (1.3-7.7) k/uL Sodium 136 L (137-145) mmol/L Glucose 108 H (74-99) mg/dL
[2022-02-01 02:47] VITALS: BP 134/80; PULSE 70
[2022-02-01 03:26] LABS: Basophils % (A) 0 %; Eosinophils # (A) 0.1 k/uL (0-0.7); Eosinophils % (A) 1 %; HCT 42.6 % (39.0-53.0); HGB 15.2 gm/dL (13.0-17.5); Lymphocytes # (A) 2.3 k/uL (1.0-4.8); Lymphocytes % (A) 31 %; MCH 32.8 pg (25.0-35.0); MCHC 35.6 g/dL (31.0-37.0); MCV 91.9 fL (80.0-100.0); Mean Platelet Volume 6.7; Monocytes # (A) 0.4 k/uL (0-1.0); Monocytes % (A) 6 %; Neutrophils # (A) 4.5 k/uL (1.3-7.7); Neutrophils % (A) 60 %; Platelet Count 178 k/uL (150-450); RBC 4.64 m/uL (4.30-5.90); RDW 12.6 % (11.5-15.5); WBC 7.5 k/uL (3.8-10.6)
[2022-02-01 05:21] LABS: Basophils # (A) 0.1 k/uL (0-0.2); Basophils % (A) 1 %; Eosinophils # (A) 0.1 k/uL (0-0.7); Eosinophils % (A) 2 %; HCT 43.2 % (39.0-53.0); HGB 15.1 gm/dL (13.0-17.5); Lymphocytes # (A) 2.4 k/uL (1.0-4.8); Lymphocytes % (A) 29 %; MCV 91.3 fL (80.0-100.0); Mean Platelet Volume 6.4; Monocytes # (A) 0.5 k/uL (0-1.0); Monocytes % (A) 7 %; Neutrophils # (A) 4.9 k/uL (1.3-7.7); Neutrophils % (A) 60 %; Platelet Count 185 k/uL (150-450); RBC 4.73 m/uL (4.30-5.90); RDW 12.2 % (11.5-15.5); WBC 8.2 k/uL (3.8-10.6)
[2022-02-01 05:36] LABS: African American GFR (CKD) >90 (>60 ml/min/1.73 sqM); Anion Gap 5 mmol/L; Blood Urea Nitrogen 14 mg/dL (9-20); Calcium 8.1 mg/dL (8.4-10.2); Carbon Dioxide 28 mmol/L (22-30); Chloride 104 mmol/L (98-107); Glucose 100 mg/dL (74-99); Non-African American GFR(CKD) >90 (>60 ml/min/1.73 sqM); Potassium 3.8 mmol/L (3.5-5.1); Sodium 137 mmol/L (137-145)
[2022-02-01 05:53] LABS: INR 0.9 (<1.2); Partial Thromboplastin Time 27.3 sec (22.0-30.0); Prothrombin Time 10.2 sec (9.0-12.0)
[2022-02-01] MEDS ORDERED: SERTRALINE 100 MG TAB PO SCH (09:00)
--- NOTE | 2022-02-01 09:23 | P.DS ---
Providers Date of admission: 01/31/22 21:25 Expected date of discharge: 02/01/22 Attending physician: Matt Thacker MD Consults: 01/31/22 21:25 Consult Physician Routine Consulting Provider: [facility] Consult Reason/Comments: unstable angina/chest pain Do you want consulting provider notified?: Yes, Notify in am Primary care physician: Stated None Hospital Course: THIS IS NOT A DISCHARGE SUMMARY, BUT A SUMMARY OF CARE RECEIVED REPORT THAT THIS PATIENT LEFT AGAINST MEDICAL ADVICE Hospital Course Diagnoses: [ Chest pain, rule out acute coronary syndrome with concerns of unstable angina. Hypertension Frequent PVCs, bigeminy rhythm Ectopic atrial rhythm Hospital Course: Patient presented to the hospital on 01/31/22 with a chief complaint of chest pain. Patient reportedly had no known past medical history but reported to the emergency department after reports of feeling weak throughout the day yesterday and upon working on a lawn he suddenly developed chest discomfort around 4 PM yesterday evening in which patient reported sitting down in his car where he was believed to have lost consciousness for an unknown period of time. Upon awakening patient continued to have significant left-sided chest pain radiating into his left arm and shoulder accompanied by shortness of breath and diaphoresis. He presented to the emergency department. Initial EKG completed revealing sinus rhythm with runs of bigeminy and repeat EKG revealing sinus mechanism with P-wave inversions in leads 1, aVL, V1 and V2 indicating an ectopic atrial rhythm. Initial labs revealed mild leukocytosis with WBC count of 10.7 otherwise unremarkable CBC, coags, and CMP. Troponin was negative at less than 0.012. Chest x-ray negative for acute cardiopulmonary process. Patient was started on heparin infusion and admitted under our services to rule out acute coronary syndrome with concerns of unstable angina. Troponins were trended throughout the night all negative at less than 0.0123 draws. Received notification at 8:45 AM that patient reportedly left AGAINST MEDICAL ADVICE from the emergency department at 8:16 AM. Patient reportedly left AGAINST MEDICAL ADVICE on 02/01/22 at 8:16 AM. Patient Condition at Discharge: Undetermined Plan - Discharge Summary New Discharge Prescriptions: No Action Multivitamins, Thera [Multivitamin (formulary)] 1 tab PO DAILY Ibuprofen [Motrin] 800 mg PO TID PRN PRN Reason: Pain Sertraline [Zoloft] 100 mg PO DAILY Discharge Medication List Ibuprofen [Motrin] 800 mg PO TID PRN 01/31/22 [History] Multivitamins, Thera [Multivitamin (formulary)] 1 tab PO DAILY 01/31/22 [History] Sertraline [Zoloft] 100 mg PO DAILY 01/31/22 [History] Follow up Appointment(s)/Referral(s): None,Stated [Primary Care Provider] - 1-2 days Discharge Disposition: Left Against Medical Advice
== END 2022-02-01 09:02 | disposition left against medical advice (07) ==
LOC: EC 18:50 → 6NMEDSUR 21:25
PROVIDERS: ADMIT Internal Medicine; ATTEND Internal Medicine
DX: R07.89 Other chest pain (principal); Z53.29 Procedure and treatment not carried out because of patient's decision for other reasons; R06.00 Dyspnea, unspecified; R53.1 Weakness; R61 Generalized hyperhidrosis; R06.02 Shortness of breath; D72.829 Elevated white blood cell count, unspecified; R00.8 Other abnormalities of heart beat; F17.210 Nicotine dependence, cigarettes, uncomplicated; I10 Essential (primary) hypertension; F41.9 Anxiety disorder, unspecified; I49.3 Ventricular premature depolarization; E66.3 Overweight; Z68.28 Body mass index [BMI] 28.0-28.9, adult; Z79.899 Other long term (current) drug therapy; Z82.49 Family history of ischemic heart disease and other diseases of the circulatory system
CPT/HCPCS: 96376 ×2; 96366 ×2; 96365; 99285; 36415; 93005; 80053; 80048; 83735; 84484 ×2; 85025 ×2; 85610 ×2; 85730 ×2; 71046; G0378 ×2; J1644 ×3